=== PATIENT | female | born 1985 | race Hispanic/Latino ===

== ENCOUNTER 2023-09-16 17:11 | Emergency (ER) | payer OTHER ==
[2023-09-16 18:04] LABS: RAPID GROUP A STREP negative (NEGATIVE)
[2023-09-16 18:14] LABS: COVID19 (SARS ANTIGEN RAPID) PRESUMPTIVE NEGATIVE (NEGATIVE); INFLUENZA TYPE A Negative For Type A (NEGATIVE); INFLUENZA TYPE B Negative For Type B (NEGATIVE)
[2023-09-16 20:14] VITALS: PULSE 80; RESP 16
[2023-09-16] MEDS: IPRATROPIUM/ALBUTEROL SULFATE 3 ML SOLUTION IH ONE (20:14)
[2023-09-16] MEDS ORDERED: IPRA3AMP24 IH (20:17)
[2023-09-16] MEDS ORDERED: PSEU120T62 PO (20:17)
[2023-09-16] MEDS ORDERED: CEFD300C3 PO (20:17)
[2023-09-16] MEDS ORDERED: BENZ200C53 PO (20:17)
[2023-09-16] MEDS ORDERED: NAPR-1023 PO (20:17)
[2023-09-16 20:35] VITALS: BP 132/72; PULSE 88; RESP 16; O2SAT 99
[2023-09-16] MEDS: DEXAMETHASONE SOD PHOSPHATE 4 MG/ML 1ML VIAL IM ONE (20:35)
[2023-09-16] MEDS: CEFTRIAXONE 1G VIAL IM ONE (20:35)
== END 2023-09-16 21:21 | disposition home or self-care (01) ==
LOC: EDH 17:11
DX: J18.9 Pneumonia, unspecified organism (principal); E03.9 Hypothyroidism, unspecified; Z20.822 Contact with and (suspected) exposure to COVID-19; Z90.49 Acquired absence of other specified parts of digestive tract; Z88.0 Allergy status to penicillin
CPT/HCPCS: 99284; 71045; 87426; 87880; 87804 ×2; 96372 ×2; 94640; J1100; J0696